=== PATIENT | female | born 1995 | race Caucasian/White ===

== ENCOUNTER 2016-07-15 21:08 | Emergency (ER) | payer BC ==
[~2016-07-15] VITALS: Ht 167.6 cm; Wt 54.6 kg
[2016-07-15 22:17] LABS: HEMATOCRIT 37.1 % (36.0-46.0); MCH 29.1 PG (29.0-34.0); MCHC 32.3 G/DL (30.0-36.0); MEAN PLAT.VOLUME 11.1 uM^3 (9.5-12.4); PLATELET COUNT 257 K/uL (156-360); RBC DIS.WIDTH-CV 12.7 % (11.8-14.6); RBC DIS.WIDTH-SD 41.6 % (39-53); RED BLOOD COUNT 4.12 M/uL (3.80-5.20); WHITE BLOOD COUNT 8.7 K/uL (4.1-10.2)
[2016-07-15 22:26] LABS: CHLORIDE 107 mEq/L (99-109); POTASSIUM 4.1 mEq/L (3.7-5.4); SODIUM 141 mEq/L (136-147)
[2016-07-15 22:28] LABS: GLUCOSE 96 mg/dL (70-99)
[2016-07-15 22:29] LABS: ANION GAP 8 MEQ/L (2-14)
[2016-07-15 22:30] LABS: TOTAL BILIRUBIN 0.2 mg/dL (0.0-1.0)
[2016-07-15 22:31] LABS: ALKALINE PHOSPHATASE 40 IU/L (3-129)
[2016-07-15 22:32] LABS: GFR ESTIMATE (CALCULATED) > 59 mL/min/
[2016-07-15 22:33] LABS: UREA NITROGEN (BUN) 12 mg/dL (9-23)
[2016-07-15 22:35] LABS: ADD MIUA? YES; BILIRUBIN NEGATIVE; BLOOD SMALL; COLOR YELLOW ((YELLOW)); GLUCOSE (STRIP) NEGATIVE; KETONES NEGATIVE; LEUKOCYTES TRACE; NITRITE NEGATIVE; PROTEIN (STRIP) 100; SPECIFIC GRAVITY 1.014 (1.000-1.030); UROBILINOGEN 0.2 MG/DL (0.2-1.0)
[2016-07-15 22:41] LABS: QUANTITATIVE HCG < 4.0 MIU/ML
[2016-07-15 22:50] LABS: RED BLOOD CELLS 15-20 /HPF (0-5)
[2016-07-15 22:51] LABS: BACTERIA 2+ /HPF; CASTS NONE SEEN /LPF; CRYSTALS NONE SEEN; EPITHELIAL CELLS 1+ /HPF; MUCUS 1+ /LPF; UCUL ADDED? YES; WHITE BLOOD CELLS 20-30 /HPF (0-5)
[2016-07-16] MEDS ORDERED: KEFLEX500 MG PO (00:11)
[2016-07-16] MEDS ORDERED: ZOFRAN ODT4 MG PO (00:11)
[2016-07-16] MEDS ORDERED: PERCOCET 5/31 TABLET PO (00:11)
[2016-07-16] MEDS ORDERED: PYRIDIUM200 MG PO (00:11)
[2016-07-16 01:19] VITALS: BP 112/91
== END 2016-07-16 01:47 | disposition home or self-care (01) ==
LOC: EME 21:08
PROVIDERS: Physician Assistant
DX: N30.90 Cystitis, unspecified without hematuria (principal); Z87.440 Personal history of urinary (tract) infections
CPT/HCPCS: 74177; 80053; 81003; 84702; 85027; 87077; 87086; 99281; 99285; J0696; J1200; J2270; J2405; J7030; J7050

== ENCOUNTER 2016-09-17 18:04 | Emergency (ER) | payer BC ==
[~2016-09-17] VITALS: Ht 167.6 cm; Wt 55.2 kg
[~2016-09-17 18:04] MED LIST: KEFLEX500 MG PO; PERCOCET 5/31 TABLET PO; PYRIDIUM200 MG PO; ZOFRAN ODT4 MG PO
[2016-09-17 19:04] LABS: ADD MIUA? YES; BILIRUBIN NEGATIVE; BLOOD LARGE; COLOR YELLOW ((YELLOW)); GLUCOSE (STRIP) NEGATIVE; KETONES 20; LEUKOCYTES MODERATE; NITRITE NEGATIVE; PROTEIN (STRIP) 30; SPECIFIC GRAVITY 1.014 (1.000-1.030); UROBILINOGEN 0.2 MG/DL (0.2-1.0)
[2016-09-17 19:46] LABS: BACTERIA 2+ /HPF; CASTS NONE SEEN /LPF; CRYSTALS NONE SEEN; EPITHELIAL CELLS 1+ /HPF; MUCUS 3+ /LPF; RED BLOOD CELLS TNTC /HPF (0-5); UCUL ADDED? YES; WHITE BLOOD CELLS 15-20 /HPF (0-5)
[2016-09-17 19:51] LABS: HEMATOCRIT 40.7 % (36.0-46.0); MCH 29.4 PG (29.0-34.0); MCHC 32.4 G/DL (30.0-36.0); MCV 90.6 FL (83-99); MEAN PLAT.VOLUME 11.6 uM^3 (9.5-12.4); PLATELET COUNT 235 K/uL (156-360); RBC DIS.WIDTH-CV 13.3 % (11.8-14.6); RBC DIS.WIDTH-SD 44.7 % (39-53); RED BLOOD COUNT 4.49 M/uL (3.80-5.20); WHITE BLOOD COUNT 7.7 K/uL (4.1-10.2)
[2016-09-17 20:03] LABS: CHLORIDE 104 mEq/L (99-109); SODIUM 138 mEq/L (136-147)
[2016-09-17 20:05] LABS: GLUCOSE 115 mg/dL (70-99)
[2016-09-17 20:07] LABS: ANION GAP 9 MEQ/L (2-14); TOTAL BILIRUBIN 0.3 mg/dL (0.0-1.0)
[2016-09-17 20:09] LABS: ALKALINE PHOSPHATASE 40 IU/L (3-129); GFR ESTIMATE (CALCULATED) > 59 mL/min/
[2016-09-17 20:10] LABS: UREA NITROGEN (BUN) 9 mg/dL (9-23)
[2016-09-17 20:26] LABS: QUANTITATIVE HCG < 4.0 MIU/ML
[2016-09-17] MEDS ORDERED: CIPRO250 MG PO (22:55)
[2016-09-17] MEDS ORDERED: PYRIDIUM200 MG PO (22:55)
[2016-09-17] MEDS ORDERED: FLAGYL500 MG PO (22:55)
[2016-09-17 23:17] VITALS: BP 112/68
[2016-09-19 13:38] LABS: CHLAMYDIA TRACHOMATIS NEGATIVE; NEISSERIA GONORRHOEAE NEGATIVE
== END 2016-09-17 23:22 | disposition home or self-care (01) ==
LOC: EME 18:04
PROVIDERS: Physician Assistant
DX: N39.0 Urinary tract infection, site not specified (principal); N89.8 Other specified noninflammatory disorders of vagina
CPT/HCPCS: 80053; 81003; 84702; 85027; 87077; 87086; 87210; 87480; 87491; 87510; 87591; 87660; 99281; 99284; J0696